=== PATIENT | male | born 1935 | race Caucasian/White ===

== ENCOUNTER 2019-12-12 14:11 | Outpatient (CLI) | payer MEDICARE, OTHER ==
[~2019-12-12 14:11] MED LIST: ACET-2065 PO; AZIT500T10 PO; BICA50TA5 PO; BISA10SU54 PR; CALC-451 PO; CEFD300C37 PO; DOCU100C33 PO; ENOX40SY4 SQ; FLUT1AER INH; FLUT1AER PO; FOLI0.4T2 PO; GUAI5SYR PO; LORA-445 PO; ONDA4TAB13 SL; OXYC5TAB3 PO; PRED5TAB PO; PRED5TAB19 PO; SILD20TA2 PO; TAMS-11 PO; TAMS0.4C2 PO
== END 2019-12-12 23:59 | disposition home or self-care (01) ==
LOC: CFH 14:11
PROVIDERS: ATTEND Nurse Practitioner
DX: J84.89 Other specified interstitial pulmonary diseases (principal); J84.10 Pulmonary fibrosis, unspecified; J96.11 Chronic respiratory failure with hypoxia
CPT/HCPCS: 71250

== ENCOUNTER → 2019-12-18 | Outpatient (CLI) | payer MEDICARE, OTHER ==
[2019-12-18 16:26] LABS: BASOPHILS # (AUTO) 0.02 x10^3/uL (0-0.1); BASOPHILS % (AUTO) 0 % (0-1); EOSINOPHILS # (AUTO) 0.15 x10^3/uL (0-0.4); EOSINOPHILS % (AUTO) 2 % (1-7); LYMPHOCYTES # (AUTO) 2.27 x10^3/uL (1-3.4); LYMPHOCYTES % (AUTO) 29 % (22-44); MD NO; MEAN CORPUSCULAR HEMOGLOBIN 30.2 pg (27.5-34.5); MEAN CORPUSCULAR HGB CONC 33.1 g/dL (33.2-36.2); MEAN CORPUSCULAR VOLUME 91.1 fL (81-97); MEAN PLATELET VOLUME 7.5 fL (7.4-10.4); MONOCYTES # (AUTO) 0.59 x10^3/uL (0.2-0.8); MONOCYTES % (AUTO) 8 % (2-9); NEUTROPHILS # (AUTO) 4.72 x10^3/uL (1.8-6.8); NEUTROPHILS % (AUTO) 61 % (42-75); PLATELET COUNT 260 x10^3/uL (130-400); RED BLOOD COUNT 4.65 x10^6/uL (4.38-5.82); RED CELL DISTRIBUTION WIDTH 13.7 % (9.4-14.8)
[2019-12-18 16:59] LABS: HCT (SEDRATE) 42.4 % (39.2-51.8)
== END | disposition home or self-care (01) ==
LOC: LAB 15:58
PROVIDERS: ATTEND Nurse Practitioner
DX: J84.10 Pulmonary fibrosis, unspecified (principal)
CPT/HCPCS: 36415; 82103; 82104; 83520; 85025; 85651; 86235; 86256; 86331; 86430; 86602; 86606; 86609; 86671

== ENCOUNTER → 2020-07-21 | Outpatient (CLI) | payer MEDICARE, OTHER | END | disposition home or self-care (01) | LOC: CVU 10:22 | PROVIDERS: ATTEND Nurse Practitioner | DX: I35.8 Other nonrheumatic aortic valve disorders (principal); J47.9 Bronchiectasis, uncomplicated; J84.89 Other specified interstitial pulmonary diseases; I51.7 Cardiomegaly; Z87.891 Personal history of nicotine dependence | CPT/HCPCS: 71250; 93306 ==

== ENCOUNTER 2021-07-13 12:11 | Outpatient (CLI) | payer MEDICARE, OTHER ==
[~2021-07-13 12:11] MED LIST changes: -FOLI0.4T2 PO; +FOLI0.4T5 PO; -OXYC5TAB3 PO; +OXYC5TAB98 PO
== END 2021-07-13 23:59 | disposition home or self-care (01) ==
LOC: CFH 12:11
PROVIDERS: ATTEND Nurse Practitioner Family
DX: J92.9 Pleural plaque without asbestos (principal); J47.9 Bronchiectasis, uncomplicated; J84.9 Interstitial pulmonary disease, unspecified; J67.9 Hypersensitivity pneumonitis due to unspecified organic dust
CPT/HCPCS: 71250